=== PATIENT | female | born 1965 | race Caucasian/White ===

== ENCOUNTER → 2024-04-23 10:25 | Outpatient (REF) | payer BC, SELFPAY | LOC: MRI 3T 10:25 | PROVIDERS: ATTENDING PHYSICIAN Surgery; FAMILY PHYSICIAN Family Medicine | DX: Z91.89 Other specified personal risk factors, not elsewhere classified (principal) | CPT/HCPCS: 77049; A9585 ==

== ENCOUNTER → 2024-05-28 07:33 | Outpatient (REF) | payer BC, SELFPAY | LOC: HWRAD 07:33 | PROVIDERS: ATTENDING PHYSICIAN Obstetrics & Gynecology; FAMILY PHYSICIAN Family Medicine; OTHER PHYSICIAN Family Medicine; REFERRING PHYSICIAN Surgery | DX: N83.209 Unspecified ovarian cyst, unspecified side (principal); Z91.89 Other specified personal risk factors, not elsewhere classified | CPT/HCPCS: 76830; 76856; 77063; 77067 ==

== ENCOUNTER → 2024-06-26 07:33 | Outpatient (REF) | payer BC, SELFPAY | LOC: RAD 07:33 | PROVIDERS: ATTENDING PHYSICIAN Family Medicine; REFERRING PHYSICIAN Internal Medicine | DX: M54.50 Low back pain, unspecified (principal) | CPT/HCPCS: 72110; 72202 ==

== ENCOUNTER → 2024-10-22 07:45 | Outpatient (REF) | payer BC, SELFPAY | LOC: HWWDC 07:45 | PROVIDERS: ATTENDING PHYSICIAN Obstetrics & Gynecology; FAMILY PHYSICIAN Family Medicine; OTHER PHYSICIAN Surgery; REFERRING PHYSICIAN Specialist | DX: Z01.419 Encounter for gynecological examination (general) (routine) without abnormal findings (principal); Z91.89 Other specified personal risk factors, not elsewhere classified; N20.0 Calculus of kidney | CPT/HCPCS: 74018; 77062; 77066 ==

== ENCOUNTER → 2024-10-31 14:43 | Outpatient (REF) | payer BC, SELFPAY ==
[2024-11-08 07:18] LABS: HPV, High Risk Not Detected; HPV, High Risk Source Anal
== END ==
LOC: CLAB 14:43
PROVIDERS: ATTENDING PHYSICIAN Physician Assistant
DX: A63.0 Anogenital (venereal) warts (principal)
CPT/HCPCS: 87624; 88112

== ENCOUNTER 2024-11-17 07:58 | Emergency (ER) | payer BC, SELFPAY ==
[2024-11-17 08:00] VITALS: BP 151/85
[2024-11-17 09:01] LABS: % Basophils 0.6 % (0-2); % Eosinophils 0.4 % (0-6); % Immature Granulocytes 0.2 % (0-0.5); % Lymphocytes 24.8 % (20.5-51.1); % Monocytes 7.3 % (1.7-9.3); % Neutrophils 66.7 % (42.2-75.2); Absolute Lymphocytes 1.2 10^3/uL (1.2-3.4); Absolute Monocytes 0.4 10^3/uL (0.1-0.6); Absolute Neutrophils 3.3 10^3/uL (1.4-6.5); Hematocrit 38.4 % (37.0-47.0); Hemoglobin 12.7 g/dL (12.0-16.0); Mean Corp Hgb Conc. 33.1 g/dL (33.0-37.0); Mean Corpuscular Hgb 27.5 pg (27.0-31.0); Mean Corpuscular Volume 83.3 fL (81.0-99.0); Nucleated Red Blood Cells % 0 %; Platelet Count 255 10^3/uL (130-400); Red Blood Cell Count 4.61 10^6/uL (4.20-5.40); Red Cell Dist. Width 13.2 % (11.5-14.5)
[2024-11-17 09:12] LABS: ALT (SGPT) 17 U/L (0-35); AST (SGOT) 23 U/L (14-36); Albumin 4.3 g/dl (3.5-5.0); Alkaline Phosphatase 57 U/L (38-126); Blood Urea Nitrogen 14 mg/dl (7-17); Calcium 9.1 mg/dl (8.4-10.2); Carbon Dioxide 26 mmol/L (22-30); Chloride 100 mmol/L (98-107); Glucose 122 mg/dl (70-99); Potassium 3.7 mmol/L (3.5-5.1); Sodium 135 mmol/L (135-145); Total Bilirubin 0.6 mg/dl (0.2-1.3); Total Protein 6.7 g/dl (6.3-8.2); eGFR > 60.00
[2024-11-17 09:30] LABS: INR 0.97; PT 13.2 Sec (11.4-14.6)
[2024-11-17 09:31] LABS: APTT 23.7 Sec (23.4-35.0)
--- NOTE | 2024-11-17 09:31 | ED.GENMED ---
History of Present Illness
General
Chief Complaint: Rectal Bleeding
Source: patient
Exam Limitations: none
Time Seen by Provider: 11/17/24 08:20
Nursing documentation reviewed up to this point in time: agreed with
History of Present Illness
History of Present Illness:
59-year-old female with history as noted presents to the ER for evaluation after episode of lightheadedness; episode occurred in the setting of recent rectal bleeding/dark stool. Patient reports that she has had issues with constipation for a long
time and sees Dr. Blount for GI. She said that previously in the setting of constipation she had some bleeding hemorrhoids but GI placed her on daily MiraLAX and 3 times daily Colace and since then she has had very regular and daily soft bowel
movements without issue. Has not had recurrence of bleeding. She says that about a month ago she noted that she was having some blood with her daily bowel movement bright red mixed in. She says this despite no constipation or straining and very
soft stools. She says that she went to see colorectal surgery on 10/31/2024 for this issue and had rectal exam and was scheduled for an outpatient anoscopy which is pending. Earlier this week she thought she had some dark stool and was given an
outpatient Hemoccult test by primary doctor which she is set to send in today. She had outpatient labs drawn yesterday and received a call from her primary that her hemoglobin was normal. The reason she presents to the ER today is because she had
an episode of lightheadedness in the context of these symptoms. She says that earlier today she had a normal bowel movement, went to the gym and then went to urinate after going to the gym. After she finished urinating she said she began to feel
lightheaded and had brief syncopal episode. She said she had associated nausea and some sweatiness. No associated chest pain or shortness of breath, no palpitations. No abdominal or flank pain. No headache. She says she feels fine here. She
called her GI doctor because of her recent symptoms and was directed to be evaluated in the ER. She is not on any blood thinners. She denies other complaints.
Past History
Past History
ED Past Medical History: Other (Kidney stones)
ED Past Surgical History: Urological and Other (Oophorectomy)
Social History
Tobacco: Non-smoker
Alcohol: None
Drug: None
Review of Systems
Review of Systems
All Other Systems: ROS reviewed and negative except as documented in HPI and ROS
Constitutional: Denies fever
Respiratory: Denies trouble breathing
Cardiac: Reports diaphoresis and syncope; Denies chest pain or palpitations
ABD/GI: Reports nausea and bloody stools; Denies abdominal pain or vomiting
: Denies flank pain
Musculoskeletal: Denies neck pain or back pain
Neurological: Denies headache
Phy Exam
Physical Exam
Physical Exam:
General: Awake, alert, oriented x3; no acute distress
Head: Normocephalic, atraumatic
Eyes: Conjunctiva normal, sclera anicteric
Throat: Airway intact, handling secretions
Neck: Trachea midline, supple without meningismus
Lungs: Clear to auscultation bilaterally, no wheezing, rales, rhonchi
Heart: Regular rate and rhythm, no murmurs, gallops, or rubs
Abd: Soft, non distended, nontender with no palpable masses
Rectal: Patient does have external hemorrhoids no active bleeding, no rectal masses, brown stool in rectal vault Hemoccult negative
Neuro: No gross deficit
Extremities: Warm and well-perfused with good pulses
Scores
Heart Failure Risk
Heart Failure Risk Score: Not Applicable
Heart Score for Chest Pain Patients
STEMI patient?: Not applicable
Withdrawal Assessment of Alcohol
Withdrawal Assessment Completed?: Not applicable
Course
Orders/Labs/Results
Orders:
Orders
11/17/24 08:34
Type+Screen Urgent
Complete Blood Count/With Diff Urgent
Comprehensive Metabolic Panel Urgent
PTT Urgent
Prothrombin Time Urgent
11/17/24 09:39
Electrocardiogram (*1) Urgent
Reason for Study: Syncope
EKG- Treatment ONCE
11/17/24 09:49
Troponin I Urgent
11/17/24 10:02
Urinalysis Reflex To Culture Urgent
Date Specimen was Collected: 11/17/24
Time Specimen was Collected: 10:00
11/17/24 11:00
Troponin I Urgent
Abnormal Lab Results
11/17/24
08:34
Glucose 122 H mg/dl
(70-99)
11/17/24 08:34
11/17/24 08:34
Vital Signs
Initial and Last Documented VS:
Initial Vital Signs
Temp Pulse Resp BP Pulse Ox
36.7 C 76 18 151/85 98
11/17/24 08:00 11/17/24 08:00 11/17/24 08:00 11/17/24 08:00 11/17/24 08:00
Last Documented Vital Signs
Temp Pulse Resp BP Pulse Ox
36.7 C 79 16 140/78 98
11/17/24 08:00 11/17/24 10:05 11/17/24 10:05 11/17/24 10:05 11/17/24 10:05
MDM/Problems Addressed
Differential Diagnosis Includes:
Syncope: Vasovagal, anemia, electrolyte derangement/dehydration, dysrhythmia, ACS less likely with no chest pain
MDM/Problems Addressed:
59-year-old female presents for evaluation of syncope/lightheadedness associated with some nausea and diaphoresis; symptoms today occurred in the setting of some recent minor GI bleeding issues which is being evaluated as an outpatient.
Hypertensive but otherwise normal vitals. Physical exam as above. Notably she does have external hemorrhoids and by description of her bright red blood that she has occasionally passed over the past few weeks it certainly sounds like this could be
hemorrhoidal bleeding. She is scheduled for outpatient anoscopy. She said she had some dark stools earlier this week but is Hemoccult negative. She says that since she has been on MiraLAX and Colace her stools have occasionally been darker brown.
She feels well here is not in acute distress. Rest of her physical exam is as above. Will check an EKG. Check labs including a CBC and a CMP, coags type and screen. Will check troponin and abundance of caution given the associated diaphoresis
and nausea with her symptoms today. This could be micturition syncope/vasovagal based on clinical history. Will monitor and reassess after the above.
Labs reviewed: CBC and CMP no clinically significant abnormalities. Notably normal hemoglobin and normal BUN. Troponin undetectable�will repeat. Urinalysis negative for infection. Continue to monitor.
Serial troponins negative, patient's vitals have been stable she is well-appearing asymptomatic on clinical reassessment. Stable for discharge follow-up with outpatient PCP and continue GI workup as planned. Patient comfortable with this plan. We
did speak about return precautions and all questions were answered.
Acute Exacerbation and/or Progression of Chronic Illness:
Acutely hypertensive
Acute Exacerbation and/or Progression of Chronic Illness: HTN
*Pulse Oximetry
Patient hypoxic: no
*EKG
Interpreted by ED Provider?: Yes
Heart Rate: 69
Rate: normal
Rhythm: sinus
[place]: normal axis
Interval: normal interval
QRS Pattern: normal QRS
Ischemia: no ischemia
*Critical Care Note
Total Time (30-74mins, 75-104mins- exclusive of procedures): Not Applicable
Data Reviewed
Review of Other/Old Records Reveals: Labs and Records
Source: patient and records
ED Attending Note
-
Portions of this chart may have been created with voice recognition software.� Occasional wrong word or��sound alike� substitutions may have occurred due to the inherent limitations of voice recognition software.
Discharge Plan
Departure
Patient Disposition: Home (Routine Discharge)
Date of Disposition: 11/17/24
Time of Disposition: 11:49
Patient with high blood pressure during this ER visit?: Yes
Discharge Problem:
Syncope, Rectal bleeding
Instructions: Syncope (fainting), Hemorrhoids (DC)
Prescriptions:
No Action
ascorbic acid (vitamin C) [Vitamin C] 500 MG tablet
500 mg PO TUTHSA
calcium carbonate [Antacid (calcium carbonate)] 1 TABLET tablet,chewable
2 tab PO MOWEFRSA
docusate sodium 100 MG capsule
100 mg PO DAILY
cholecalciferol (vitamin D3) 1,000 UNITS tablet
1,000 units PO MOWEFRSA
multivitamin with folic acid [Tab-A-Estelita] 1 TABLET tablet
1 tab PO MOWEFRSA
acetaminophen 325 MG tablet
650 mg PO Q4HPRN PRN (Reason: moderate pain) Qty: 0 0RF
Rx Instructions:
may take one to two q 4-6 hours
hydrocodone-acetaminophen 1 TABLET tablet
1 tab PO Q4HPRN PRN (Reason: moderate pain) Qty: 3 0RF
tamsulosin [Flomax] 0.4 mg capsule
0.4 mg PO DAILY Qty: 30 0RF
ondansetron 4 mg Tablet,Disintegrating
4 mg PO BIDPRN PRN (Reason: nausea/vomiting) Qty: 10 0RF
Referrals:
Kirstin Ritter MD [Family Provider] - Follow up in 5-7 days
Fadia Blount MD [Active] - Keep scheduled appt
Activity Restrictions/Additional Instructions:
Thank you for visiting the Emergency Department at [facility].
1. Please schedule a follow up appointment as directed. Call first thing tomorrow morning to make an appointment.
2. If indicated, please take your medications as instructed and indicated on discharge paperwork.
3. If any of your symptoms do not improve, or persist, or become more severe within 6-12 hours, please return to the emergency department for further care.
4. Please return to the emergency department if you develop a headache, neck pain/stiffness, fever greater than 100.4F, chest pain, shortness of breath, persistent nausea, vomiting, slurred speech, difficulty walking, numbness/tingling, weakness,
signs of infection or any other symptoms that are worrisome to you.
Please call [phone] if you have any questions.
Interventions
Interventions:
*Risk Screen - Suicide Last Done: 11/17/24 09:00
*General Assessment Last Done: 11/17/24 11:02
*Neglect/Abuse Screening Last Done: 11/17/24 09:00
*ED COVID-19 Vaccine History Last Done: 11/17/24 11:02
WN-Vwwviq-Srmrlgxhwa Assessment Last Done: 11/17/24 09:59
ED- Cardiac Assessment Last Done: 11/17/24 09:59
ED- Pulmonary Assessment Last Done: 11/17/24 09:59
Discharge Date and Time
Print Language: [id number]
[2024-11-17 10:05] VITALS: BP 140/78
[2024-11-17 10:20] LABS: Troponin I < 0.012 ng/ml
[2024-11-17 10:25] LABS: Urine Albumin Negative (Neg - Trace); Urine Bilirubin Negative (Negative); Urine Character Clear (Clear); Urine Color Yellow; Urine Glucose Negative (Negative); Urine Ketone Negative (Negative); Urine Leukocyte Negative (Negative); Urine Nitrite Negative (Negative); Urine Occult Blood Negative (Negative); Urine Urobilinogen Negative (Neg - 1+)
[2024-11-17 11:31] LABS: Troponin I < 0.012 ng/ml
[2024-11-17 12:06] VITALS: BP 132/84
== END 2024-11-17 12:08 | disposition home or self-care (01) ==
LOC: EMR 07:58
PROVIDERS: EMERGENCY PHYSICIAN Emergency Medicine; FAMILY PHYSICIAN Family Medicine
DX: R55 Syncope and collapse (principal); K62.5 Hemorrhage of anus and rectum; Z87.19 Personal history of other diseases of the digestive system; Z87.442 Personal history of urinary calculi; Z90.721 Acquired absence of ovaries, unilateral
CPT/HCPCS: 99283; 80053; 81003; 84484; 85025; 85610; 85730; 86850; 86900; 86901; 93005

== ENCOUNTER → 2025-04-22 10:11 | Outpatient (REF) | payer BC, SELFPAY | LOC: MRI 3T 10:11 | PROVIDERS: ATTENDING PHYSICIAN Surgery; REFERRING PHYSICIAN Obstetrics & Gynecology | DX: R92.2 Inconclusive mammogram (principal); Z12.31 Encounter for screening mammogram for malignant neoplasm of breast; Z91.89 Other specified personal risk factors, not elsewhere classified | CPT/HCPCS: 77049; A9585 ==

== ENCOUNTER → 2025-05-02 08:20 | Outpatient (REF) | payer BC, SELFPAY | LOC: HWRCS 08:20 | PROVIDERS: ATTENDING PHYSICIAN Internal Medicine Cardiovascular Disease; FAMILY PHYSICIAN Family Medicine | DX: I05.9 Rheumatic mitral valve disease, unspecified (principal) | CPT/HCPCS: 93306 ==

== ENCOUNTER → 2025-05-21 07:45 | Outpatient (REF) | payer BC, SELFPAY | LOC: HWRAD 07:45 | PROVIDERS: ATTENDING PHYSICIAN Internal Medicine; FAMILY PHYSICIAN Family Medicine; OTHER PHYSICIAN Internal Medicine Endocrinology, Diabetes & Metabolism; REFERRING PHYSICIAN Obstetrics & Gynecology | DX: M81.0 Age-related osteoporosis without current pathological fracture (principal); Z01.419 Encounter for gynecological examination (general) (routine) without abnormal findings; D25.1 Intramural leiomyoma of uterus; N83.201 Unspecified ovarian cyst, right side | CPT/HCPCS: 76830; 76856; 77080 ==